=== PATIENT | male | born 1960 | race Hispanic/Latino ===

== ENCOUNTER 2017-09-06 06:30 | Day surgery (SDC) | payer MEDICAID ==
[~2017-09-06 06:30] MED LIST: ANCEF/STERILE WATER 2 GM/20 ML 2 GM/20 ML SYRINGE IV NR; NACL 0.9% 1000 ML 1,000 ML IV SCH
[2017-09-06] MEDS ORDERED: NACL 0.9% 500 ML 500 ML IV SCH (07:00)
[2017-09-06 07:18] LABS: Basophils % (Auto) 0.6 % (0.0-1.8); Eosinophils % (Auto) 2.5 % (0.0-4.3); Hemoglobin 8.1 gm/dl (11.8-15.2); Mean Corpuscular HGB Conc 34 % (32-34); Mean Corpuscular Hemoglobin 36 pg (28-32); Mean Corpuscular Volume 106 fl (84-94); Red Blood Count 2.26 M/mm3 (3.65-5.03); White Blood Count 3.9 K/mm3 (4.5-11.0)
[2017-09-06 07:22] LABS: Platelet Count 62 K/mm3 (140-440)
[2017-09-06 07:27] LABS: INR 1.33 (0.87-1.13)
[2017-09-06 07:46] LABS: Calcium 7.8 mg/dL (8.4-10.2); Chloride 96.4 mmol/L (98-107); Potassium 4.8 mmol/L (3.6-5.0)
[2017-09-06] MEDS ORDERED: XYLOCAINE 1%/ EPI 1:100,000 INFILTRATI ONE (09:06)
[2017-09-06] MEDS ORDERED: NACL 0.9% 500 ML 500 ML ONE (09:06)
[2017-09-06] MEDS ORDERED: ANCEF/STERILE WATER 2 GM/20 ML 2 GM/20 ML SYRINGE IV ONE (09:06)
[2017-09-06] MEDS ORDERED: ALBURX 25% (ALBUMIN) IV NR ×4 (09:10→09:30)
[2017-09-06] MEDS: SUBLIMAZE ONE ×2 (09:33→10:05)
[2017-09-06] MEDS: ALBURX 25% (ALBUMIN) IV NR ×3 (09:33→10:15)
--- NOTE | 2017-09-06 10:17 | Short Stay Summary ---
Short Stay Documentation Date of service: 09/06/17 Narrative H&P: 57 year old male with metastatic renal cell carcinoma with malignant ascites who presents for tunneled abdominal catheter. Had one a year ago, but it got dislodged. - History Principal diagnosis: Metastatic renal cell carcinoma Past Medical History: cancer Past Surgical History: Other (right nephrectomy, prior drainage catheter for abdomen) Social history: , other (hospice) - Allergies and Medications Current Medications: Allergies No Known Allergies Allergy (Verified 09/06/17 06:57) Active Medications Cefazolin Sodium (Ancef/Sterile Water 2 Gm/20 Ml) 2 gm in 20 mls @ 80 mls/hr IV PREOP NR PRN Reason: Protocol Stop: 09/06/17 23:45 Last Admin: 09/06/17 09:14 Dose: 20 mls Sodium Chloride (Nacl 0.9% 500 Ml) 500 mls @ 50 mls/hr IV DIRECT SHARON - Physical exam General appearance: no acute distress Lungs: Normal air movement Gastrointestinal: distended (ascites) - Brief post op/procedure progress note Date of procedure: 09/06/17 Pre-op diagnosis: Malignant ascites Post-op diagnosis: same Procedure: tunneled abdominal catheter Anesthesia: local (w/ conscious sedation) Surgeon: TREVOR ESCOBAR Estimated blood loss: minimal Condition: stable - Hospital course Hospital course: Ready for discharge in 1 hr after last conscious sedation. Tolerated procedure well. - Disposition Condition at discharge: Stable Disposition: [id number] ([facility]) - Discharge Diagnoses (1) Metastatic renal cell carcinoma to liver Status: Chronic Short Stay Discharge Plan Activity: advance as tolerated Weight Bearing Status: Weight Bear as Tolerated Diet: advance as tolerated Wound: keep clean and dry (do not get catheter wet ; drain daily ; hospice will order drainage catheters ; forms faxed to hospice)
[2017-09-06] MEDS ORDERED: ZOFRAN ONE (10:21)
--- NOTE | 2017-09-06 10:26 | Operative Report ---
Operative Report Operative Report: EXAM: 1. Ultrasound-guided access of the right upper quadrant of the peritoneal cavity 2. Placement of a tunneled cuffed peritoneal catheter (ASPIRA) 3. Removal of 9.5 L of straw yellow colored fluid from the peritoneal cavity DATE: 09/06/17 [employer] MACHINE OPERATOR: TREVOR ESCOBAR MD INDICATION: Metastatic renal cell carcinoma with severe ascites with prior peritoneal drain which was dislodged requires another peritoneal drainage for malignant ascites. MEDICATIONS: Please see nursing report for full details. DEVICES: None CONTRAST: None PROCEDURE: The risks, benefits, and alternatives were discussed with the patient; written informed consent was obtained. The patient was brought to the angiography suite and placed in a supine position. The patient was prepped and draped in a sterile fashion. Ultrasound was used to evaluate the abdomen which demonstrated ascitic fluid. I anesthetized the abdomen. The right upper quadrant of the peritoneal cavity was accessed with a 21-gauge micropuncture needle under direct ultrasound guidance. 0.018 inch wire was passed into the peritoneal cavity. 5 Danish transitional dilator was exchanged with the needle. Wire and inner dilator were removed. 0.035 inch Amplatz wire was advanced through the transitional dilator into the peritoneal cavity. An appropriate dermatotomy site was selected medial and slightly superior to the puncture site. The area was anesthetized with 1% lidocaine with epinephrine. The track was anesthetized with 1% lidocaine with epinephrine. Dermatotomy was made. The ASPIRA catheter was connected to the metal tunneler and used to tunnel from the dermatotomy to the peritoneal puncture site. Over the Amplatz wire, the peritoneal puncture site was dilated with ultimate placement of a peel-away sheath and removal of the wire and introducer. The catheter was advanced through the peritoneal peel-away sheath into the peritoneal cavity. The sheath was broken and pulled away. Stiff angled Glidewire was passed through the catheter in order to reposition the drain in a more inferior pelvic location. Glidewire was removed. The catheter was clamped and the plastic stiffener was removed. The catheter was cut and the hub was assembled. The puncture site was then closed with 3-0 Vicryl with deep interrupted and 4-0 Vicryl subcuticular closure with overlying Dermabond. 9.5 L of peritoneal fluid was drained through the catheter. The patient complained of abdominal discomfort at this time and therefore further ascitic removal was terminated. 100 mg of albumin was infused due to history of hypotension related to paracentesis. No more fluid could be drained. The catheter was secured with 3-0 Ethilon. Sterile dressing consisting of drain gauze and overlying gauze with Tegaderm were applied to the dermatotomy site. The patient tolerated the procedure well. No immediate postprocedural complications. FINDINGS: Please see procedure note above. Ultrasound guided access of the peritoneal cavity and placement of a right sided tunneled cuffed peritoneal catheter was performed with fluoroscopic and sonographic guidance. IMPRESSION: 1. Successful placement of a right sided tunneled cuffed peritoneal catheter with sonography and fluoroscopy. 2. Removal of 9.5 L straw yellow colored fluid from the peritoneal cavity.
[2017-09-06] MEDS ORDERED: DILAUDID ONE (10:41)
[2017-09-06] MEDS ORDERED: DILAUDID IV ONE (11:00)
[2017-09-06 11:20] VITALS: BP 125/59
== END 2017-09-06 12:00 | disposition hospice, home (50) ==
LOC: CATHLABREC 06:30
PROVIDERS: ATTEND Radiology Diagnostic Radiology
DX: C64.9 Malignant neoplasm of unspecified kidney, except renal pelvis (principal); C78.7 Secondary malignant neoplasm of liver and intrahepatic bile duct; R18.0 Malignant ascites
CPT/HCPCS: 36415; 49418; 80048; 85025; 85610; 85730; 96374; C1769; J0690; J1170; J2405; J3010; J7040; P9047